=== PATIENT | female | born 1965 | race Caucasian/White ===

== ENCOUNTER 2018-09-07 15:44 | Emergency (ER) | payer BC ==
--- NOTE | 2018-09-07 15:56 | PDOC ---
Rapid Medical Evaluation Chief Complaint: Injury Time Seen by Provider: 09/07/18 15:54 Medical Evaluation: Allergies Allergy/AdvReac Type Severity Reaction Status Date / Time No Known Allergies Allergy Verified 03/13/13 21:02 09/07/18 15:55 I performed a brief in-person evaluation of this patient. Chief complaint is: Foot pain after striking on shower edge. Pertinent physical exam findings include: Tenderness over 5th metatarsal. Unable to bear weight. I have ordered the following: Xray. Patient will proceed to the ED for further evaluation. Discharge Disposition - Diagnosis Right foot injury Qualifiers: Encounter type: initial encounter Qualified Code(s): S99.921A - Unspecified injury of right foot, initial encounter - Referrals - Patient Instructions - Post Discharge Activity
[2018-09-07 15:58] VITALS: BP 142/80; PULSE 82; TEMP 98.6; BMI 31.6
--- NOTE | 2018-09-07 16:52 | PDOC ---
History of Present Illness - General Chief Complaint: Injury Stated Complaint: RT LEG INJURY Time Seen by Provider: 09/07/18 15:54 - History of Present Illness Initial Comments: 09/07/18 16:50 53-year-old female presents for evaluation of right foot pain after pain the right foot into the corner of the shower stall today Past History - Past Medical History Allergies/Adverse Reactions: Allergies Allergy/AdvReac Type Severity Reaction Status Date / Time No Known Allergies Allergy Verified 09/07/18 16:12 Home Medications: Ambulatory Orders Amlodipine Besylate/Benazepril [Lotrel 5-20 mg Capsule] 1 each PO DAILY Glimepiride [Amaryl -] 2 mg PO DAILY@0700 03/13/13 Simvastatin [Zocor -] 20 mg PO HS 03/13/13 metFORMIN HCL [Glucophage] 1,000 mg PO BID 03/13/13 COPD: No Diabetes: Yes HTN: Yes Hypercholesterolemia: Yes - Immunization History Immunization Up to Date: No - Suicide/Smoking/Psychosocial Hx Smoking Status: No Smoking History: Never smoked Have you smoked in the past 12 months: No Number of Cigarettes Smoked Daily: 0 Information on smoking cessation initiated: No Hx Alcohol Use: No Drug/Substance Use Hx: No Review of Systems - Review of Systems Musculoskeletal: Yes: Joint Pain *Physical Exam - Vital Signs Last Vital Signs Temp Pulse Resp BP Pulse Ox 98.6 F 82 16 142/80 100 09/07/18 15:55 09/07/18 15:55 09/07/18 15:55 09/07/18 15:55 09/07/18 15:55 - Physical Exam Comments: 09/07/18 16:50 Patient is unable to bear weight, right foot skin color and temperature are normal. There is mild swelling about the dorsolateral let lateral aspect of the right foot with tenderness about that area. No tenderness about the knee proximal fibula along its distal coarse medial lateral malleolus navicular base of the fifth metatarsal. No gross sensorimotor deficits neurovascularly intact no ankle instability. Moderate Sedation - Procedure Monitoring Vital Signs: Procedure Monitoring Vital Signs Temperature 98.6 F 09/07/18 15:55 Pulse Rate 82 09/07/18 15:55 Respiratory Rate 16 09/07/18 15:55 Blood Pressure 142/80 09/07/18 15:55 O2 Sat by Pulse Oximetry (%) 100 09/07/18 15:55 Medical Decision Making - Medical Decision Making 09/07/18 16:51 Osteopenia on x-rays no evidence of fracture trauma or destructive process *DC/Admit/Observation/Transfer Diagnosis at time of Disposition: Contusion of foot, right Right foot injury Qualifiers: Encounter type: initial encounter Qualified Code(s): S99.921A - Unspecified injury of right foot, initial encounter - Discharge Dispostion Disposition: HOME Condition at time of disposition: Stable Decision to Admit order: No - Referrals Referrals: Red Rivera MD [Primary Care Provider] - Twin Yo DO [Staff Physician] - - Patient Instructions Printed Discharge Instructions: Contusion Additional Instructions: May weight-bear as tolerated with use of crutches and the postop shoe return to the emergency room should symptoms worsen or go unresolved follow-up with orthopedic surgery in 2-3 days for further evaluation and treatment options. - Post Discharge Activity
== END 2018-09-07 17:27 | disposition home or self-care (01) ==
LOC: JERFT 15:44
DX: S99.921A Unspecified injury of right foot, initial encounter (principal); S90.31XA Contusion of right foot, initial encounter; X58.XXXA Exposure to other specified factors, initial encounter; Y93.89 Activity, other specified; Y92.89 Other specified places as the place of occurrence of the external cause; I10 Essential (primary) hypertension; E11.9 Type 2 diabetes mellitus without complications; E78.00 Pure hypercholesterolemia, unspecified
CPT/HCPCS: 73630-TC-RT-FY; 99281-25